=== PATIENT | male | born 1965 | race Caucasian/White ===

== ENCOUNTER 2017-09-11 18:16 | Inpatient (IN) | payer SELFPAY ==
[2017-09-11 20:02] VITALS: BMI 28.2
--- NOTE | 2017-09-11 21:03 | HP ---
COWS - Scale Resting Pulse: 1= OK 81-100 Sweatin=Flushed/Facial Moisture Restless Observation: 5= Unable to Sit Still Pupil Size: 0= Normal to Room Light Bone or Joint Aches: 4=Acute Joint/Muscle Pain Runny Nose/ Eye Tearin= Nasal Congestion GI Upset > 30mins: 2= Nausea/Diarrhea Tremor Observation: 2= Slight Tremor Visible Yawning Observation: 0= None Anxiety or Irritability: 4=Extreme Anxiety Goose Flesh Skin: 0=Smooth Skin COWS Score: 21 Admission ROS S - HPI Chief Complaint: WANTS TO DETOX OFF HEROIN Allergies/Adverse Reactions: Allergies Allergy/AdvReac Type Severity Reaction Status Date / Time No Known Allergies Allergy Verified 09/11/17 20:57 History of Present Illness: 51 Y.O. MALE WITH EXTENSIVE HX/O OPIOID DEPENDENCE ADMITTED TO DETOX TXMENT. SELF REFERRED. REPORTS LONGEST CLEAN TIME 3 YEARS. RELAPSED THIS PAST YEAR. DETOX: 6 X REHAB: 2 X Exam Limitations: No Limitations - Ebola screening Have you traveled outside of the country in the last 21 days: No Have you had contact with anyone from an Ebola affected area: No Have you been sick,other than usual withdrawal symptoms: No Do you have a fever: No - Review of Systems Constitutional: Chills, Loss of Appetite, Malaise, Night Sweats, Changes in sleep EENT: reports: Nose Congestion, Dental Problems (TOP DENTURES) Respiratory: reports: No Symptoms reported Cardiac: reports: No Symptoms Reported GI: reports: Diarrhea, Poor Appetite, Poor Fluid Intake, Abdominal cramping : reports: No Symptoms Reported Musculoskeletal: reports: Back Pain, Joint Pain Integumentary: reports: No Symptoms Reported Neuro: reports: No Symptoms reported Endocrine: reports: No Symptoms Reported Hematology: reports: No Symptoms Reported Psychiatric: reports: Anxious, Depressed Other Systems: Reviewed and Negative Patient History - Patient Medical History Hx Anemia: No Hx Asthma: Yes Hx Chronic Obstructive Pulmonary Disease (COPD): No Hx Cancer: No Hx Cardiac Disorders: No Hx Congestive Heart Failure: No Hx Hypertension: No Hx Hypercholesterolemia: No Hx Pacemaker: No HX Cerebrovascular Accident: No Hx Seizures: No Hx Dementia: No Hx Diabetes: No Hx Gastrointestinal Disorders: No Hx Liver Disease: No Hx Genitourinary Disorders: No Hx Sexually Transmitted Disorders: No Hx Renal Disease (ESRD): No Hx Thyroid Disease: No Hx Human Immunodeficiency Virus (HIV): No Hx Hepatitis C: Yes (NO TXMENT) Hx Depression: Yes Hx Suicide Attempt: No Hx Bipolar Disorder: Yes Hx Schizophrenia: No Other Medical History: R HIP PAIN - Patient Surgical History Past Surgical History: No - PPD History Previous Implant?: Yes Documented Results: Negative w/o proof Implanted On Prior [facility] Admission?: Yes PPD to be Administered?: Yes - Smoking Cessation Smoking history: Current every day smoker Have you smoked in the past 12 months: Yes Aproximately how many cigarettes per day: 20 Cigars Per Day: 0 Hx Chewing Tobacco Use: No Initiated information on smoking cessation: Yes 'Breaking Loose' booklet given: 09/11/17 - Substance & Tx. History Hx Alcohol Use: No Hx Substance Use: Yes Substance Use Type: Heroin Hx Substance Use Treatment: Yes ([facility]) - Substances Abused HEROIN Route: Injection Frequency: Daily Amount used: 10 Age of first use: 33 Date of Last Use: 09/11/17 Family Disease History - Family Disease History Family Disease History: Other: Brother (DRUGS) Admission Physical Exam [facility] - Vital Signs Vital Signs: Vital Signs - 24 hr 09/11/17 19:59 Temperature 98.6 F Pulse Rate 90 Respiratory 18 Rate Blood Pressure 144/77 - Physical General Appearance: Yes: Appropriately Dressed, Mild Distress, Irritable, Anxious HEENTM: Yes: EOMI, Normocephalic, Normal Voice, ALVIN, Pharynx Normal, Nasal Congestion, Other (TOP DENTURES) Respiratory: Yes: Chest Non-Tender, Lungs Clear, Normal Breath Sounds, No Respiratory Distress, No Accessory Muscle Use Neck: Yes: No masses,lesions,Nodules, Supple, Trachea in good position Breast: Yes: Breast Exam Deferred Cardiology: Yes: Regular Rhythm, Regular Rate, S1, S2 Abdominal: Yes: Normal Bowel Sounds, Non Tender, Soft Genitourinary: Yes: Within Normal Limits Back: Yes: Normal Inspection Musculoskeletal: Yes: full range of Motion, Gait Steady, Other (AMBULATES W/ LIMP) Extremities: Yes: Normal Capillary Refill, Normal Range of Motion, Non-Tender, Tremors Neurological: Yes: 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, Fully Oriented, Alert, Motor Strength 5/5 Integumentary: Yes: Normal Color, Dry, Warm, Track Heart (UE AND BLE) Lymphatic: Yes: Within Normal Limits - Diagnostic (1) Asthma Current Visit: Yes Status: Chronic Qualifiers: Asthma severity: mild Asthma persistence: intermittent Asthma complication type: uncomplicated Qualified Code(s): J45.20 - Mild intermittent asthma, uncomplicated; J45.20 - Mild intermittent asthma, uncomplicated; J45.20 - Mild intermittent asthma, uncomplicated (2) Nicotine dependence Current Visit: Yes Status: Chronic Qualifiers: Nicotine product type: cigarettes Substance use status: uncomplicated Qualified Code(s): F17.210 - Nicotine dependence, cigarettes, uncomplicated; F17.210 - Nicotine dependence, cigarettes, uncomplicated (3) Opioid dependence with withdrawal Current Visit: Yes Status: Chronic Cleared for Admission S - Detox or Rehab [facility] Level of Care: Medically Managed Detox Regimen/Protocol: Methadone S Breath Alcohol Content Breath Alcohol Content: 0 Urine Drug Screen - Results Drug Screen Negative: No Urine Drug Screen Results: OPI-Opiates
[2017-09-11] MEDS ORDERED: LOPERAMIDE HCL 2 MG CAPSULE PO PRN (22:39)
[2017-09-11] MEDS ORDERED: MENTHOL/PHENOL 1 EACH UD MM PRN (22:39)
[2017-09-11] MEDS ORDERED: METHADONE HCL 10 MG TABLET (FOR DETOX USE ONLY) PO ONE ×2 (22:39→23:00)
[2017-09-11] MEDS ORDERED: MAGNESIUM CITRATE 300 ML BOTTLE PO PRN (22:39)
[2017-09-11] MEDS ORDERED: P-EPHED 60MG/TRIPROLIDI 2.5MG TABLET PO PRN (22:39)
[2017-09-11] MEDS ORDERED: MAG HYDROX/AL HYDROX/SIMETH 30 ML UNIT-DOSE CUP PO PRN (22:39)
[2017-09-11] MEDS ORDERED: guaiFENesin/D-METHORPHAN HB 10 ML UNIT-DOSE CUPS PO PRN (22:39)
[2017-09-11] MEDS ORDERED: NICOTINE POLACRILEX 2 MG GUM BC PRN (22:39)
[2017-09-11] MEDS ORDERED: MAGNESIUM HYDROX 2400MG/30ML ORAL SUSPENSION 30 ML CUP PO PRN (22:39)
[2017-09-11] MEDS ORDERED: ACETAMINOPHEN 325 MG TABLET (FP) PO PRN (22:39)
[2017-09-11] MEDS: diazePAM 5 MG TABLET PO PRN (23:06)
[2017-09-11] MEDS: diphenhydrAMINE HCL 50 MG CAPSULE PO PRN (23:07)
[2017-09-12] MEDS: IBUPROFEN 400 MG TABLET (FP) PO PRN (01:10)
[2017-09-12] MEDS: diphenhydrAMINE HCL 50 MG CAPSULE PO PRN (01:10)
[2017-09-12 01:56] LABS: URINE APPEARANCE SLCLOUDY; URINE BILIRUBIN NEGATIVE (NEGATIVE); URINE BLOOD NEGATIVE (NEGATIVE); URINE COLOR YELLOW; URINE GLUCOSE (UA) NEGATIVE (NEGATIVE); URINE KETONE NEGATIVE (NEGATIVE); URINE NITRITE NEGATIVE (NEGATIVE); URINE PROTEIN NEGATIVE (NEGATIVE); URINE UROBILINOGEN NEGATIVE mg/dL (0.2-1.0)
[2017-09-12] MEDS: diazePAM 5 MG TABLET PO PRN ×4 (05:36→22:26)
[2017-09-12] MEDS ORDERED: ALBUTEROL SO4 18 GM HFA INHALER IH PRN (06:07)
[2017-09-12] MEDS ORDERED: ALBUTEROL SO4 2.5/IPRATROPIUM 0.5 INH SOL 3 ML VIAL.NEB. NEB PRN (06:07)
[2017-09-12 09:46] LABS: MCHC 33.4 g/dl (32.0-35.9); MEAN CELL VOLUME 83.9 fl (80-96); MEAN PLT VOLUME 8.3 fl (7.5-11.1); PLATELET COUNT 257 K/MM3 (134-434); RDW 14.1 % (11.9-15.9); WHITE BLOOD COUNT 7.8 K/mm3 (4.0-10.0)
[2017-09-12] MEDS ORDERED: METHADONE HCL 10 MG TABLET (FOR DETOX USE ONLY) PO ONE (10:00)
[2017-09-12 10:08] LABS: ALBUMIN 3.1 g/dl (3.4-5.0); ALK PHOS 53 U/L (45-117); ANION GAP 8 (8-16); BILIRUBIN,TOTAL 0.5 mg/dL (0.2-1.0); CALCIUM 8.4 mg/dL (8.5-10.1); CO2 27 mmol/L (21-32); CREATININE 0.9 mg/dL (0.7-1.3); GLUCOSE,RANDOM 124 mg/dL (74-106); SGOT/AST 14 U/L (15-37); SGPT/ALT 32 U/L (12-78); TOT PROT 6.3 g/dl (6.4-8.2)
[2017-09-12 10:19] LABS: URINE LEUK ESTERASE Negative (NEGATIVE)
[2017-09-12] MEDS: NICOTINE 21 MG/24 HOURS TOPICAL PATCH TD SCH (10:34)
[2017-09-12] MEDS: PRENATAL VITAMINS W/ FOLIC ACID TABLET (FP) PO SCH (10:34)
--- NOTE | 2017-09-12 12:08 | PN ---
BHS COWS - Scale Resting Pulse: 1= [place] 81-100 Sweatin= Chills/Flushing Restless Observation: 3= Extraneous Movement Pupil Size: 0= Normal to Room Light Bone or Joint Aches: 4=Acute Joint/Muscle Pain Runny Nose/ Eye Tearin= Nasal Congestion GI Upset > 30mins: 1= Stomach Cramp Tremor Observation of Outstretched Hands: 1= Tremor Hope, Not Seen Yawning Observation: 2= >3x During Session Anxiety or Irritability: 2=Irritable/Anxious Goose Flesh Skin: 0=Smooth Skin COWS Score: 16 BHS Progress Note (SOAP) Subjective: ANXIETY,SWEATS/CHILLS, FATIGUE, Objective: 09/12/17 12:08 Vital Signs Temperature 97.1 F L 09/12/17 10:16 Pulse Rate 70 09/12/17 10:16 Respiratory Rate 18 09/12/17 10:16 Blood Pressure 119/76 09/12/17 10:16 O2 Sat by Pulse Oximetry (%) Laboratory Last Values WBC 7.8 K/mm3 (4.0-10.0) 09/12/17 07:00 RBC 4.89 M/mm3 (4.00-5.60) 09/12/17 07:00 Hgb 13.7 GM/dL (11.7-16.9) 09/12/17 07:00 Hct 41.0 % (35.4-49) 09/12/17 07:00 MCV 83.9 fl (80-96) 09/12/17 07:00 MCH 28.0 pg (25.7-33.7) 09/12/17 07:00 MCHC 33.4 g/dl (32.0-35.9) 09/12/17 07:00 RDW 14.1 % (11.9-15.9) 09/12/17 07:00 Plt Count 257 K/MM3 (134-434) 09/12/17 07:00 MPV 8.3 fl (7.5-11.1) 09/12/17 07:00 Sodium 140 mmol/L (136-145) 09/12/17 07:00 Potassium 3.5 mmol/L (3.5-5.1) 09/12/17 07:00 Chloride 105 mmol/L (98-107) 09/12/17 07:00 Carbon Dioxide 27 mmol/L (21-32) 09/12/17 07:00 Anion Gap 8 (8-16) 09/12/17 07:00 BUN 15 mg/dL (7-18) 09/12/17 07:00 Creatinine 0.9 mg/dL (0.7-1.3) 09/12/17 07:00 Creat Clearance w eGFR > 60 (>60) 09/12/17 07:00 Random Glucose 124 mg/dL (74-106) H 09/12/17 07:00 Calcium 8.4 mg/dL (8.5-10.1) L 09/12/17 07:00 Total Bilirubin 0.5 mg/dL (0.2-1.0) 09/12/17 07:00 AST 14 U/L (15-37) L 09/12/17 07:00 ALT 32 U/L (12-78) 09/12/17 07:00 Alkaline Phosphatase 53 U/L (45-117) 09/12/17 07:00 Total Protein 6.3 g/dl (6.4-8.2) L 09/12/17 07:00 Albumin 3.1 g/dl (3.4-5.0) L 09/12/17 07:00 Urine Color Yellow 09/11/17 22:53 Urine Appearance Slcloudy 09/11/17 22:53 Urine pH 5.0 (5.0-8.0) 09/11/17 22:53 Ur Specific [place] >= 1.030 (1.005-1.025) H 09/11/17 22:53 Urine Protein Negative (NEGATIVE) 09/11/17 22:53 Urine Glucose (UA) Negative (NEGATIVE) 09/11/17 22:53 Urine Ketones Negative (NEGATIVE) 09/11/17 22:53 Urine Blood Negative (NEGATIVE) 09/11/17 22:53 Urine Nitrite Negative (NEGATIVE) 09/11/17 22:53 Urine Bilirubin Negative (NEGATIVE) 09/11/17 22:53 Urine Urobilinogen Negative mg/dL (0.2-1.0) 09/11/17 22:53 Ur Leukocyte Esterase Negative (NEGATIVE) 09/11/17 22:53 RPR Titer Nonreactive (NONREACTIVE) 09/12/17 07:00 Assessment: 09/12/17 12:08 WITHDRAWAL SX Plan: CONTINUE DETOX
--- NOTE | 2017-09-12 13:47 | CONSULT ---
[facility] Psychiatric Consult - Data Date of interview: 09/12/17 Admission source: [facility] Identifying data: First admission to [facility] for this 51 y/o male seeking detox treatment on for heroin dependence.Patient is single ( common-law),a father of two,domiciled,unemployed and supported on Public Assistance. Substance Abuse History: Confirmed by patient in this interview. Smoking Cessation. Smoking history: Current every day smoker. Have you smoked in the past 12 months: Yes. Aproximately how many cigarettes per day: 20. Cigars Per Day: 0. Hx Chewing Tobacco Use: No. Initiated information on smoking cessation : Yes. 'Breaking Loose' booklet given: 09/11/17. - Substance & Tx. History. Hx Alcohol Use: No. Hx Substance Use: Yes. Substance Use Type: Heroin. Hx Substance Use Treatment: Yes ([facility]). - Substances Abused. HEROIN. Route: Injection. Frequency: Daily. Amount used: 10. Age of first use: 33. Date of Last Use: 09/11/17 Medical History: Hepatitis C,chronic hip pain and bronchial asthma. Psychiatric History: No reported history of psychiatric hospitalizations.Patient reports past treatment with prozac,latuda and buspar.No recall of date of last intake.Mr Orozco denies current OPD care and expresses no interest in resuming psychotropic medications other than trazdone for insomnia.Known to [facility]drug program in [facility].patient denies history of suicide attempts. Physical/Sexual Abuse/Trauma History: No history of abuse. Additional Comment: Urine Drug Screen Results: OPI-Opiates.Noted. Mental Status Exam - Mental Status Exam Alert and Oriented to: Time, Place, Person Cognitive Function: Good Patient Appearance: Well Groomed Mood: Hopeful, Euthymic Affect: Appropriate, Normal Range Patient Behavior: Appropriate, Cooperative (friendly) Speech Pattern: Clear, Appropriate Voice Loudness: Normal Thought Process: Intact, Goal Oriented Thought Disorder: Not Present Hallucinations: Denies Suicidal Ideation: Denies Insight/Judgement: Poor Sleep: Poorly, Difficulty falling asleep Appetite: Good Muscle strength/Tone: Normal Gait/Station: Normal Psychiatric Findings - Problem List ([place] 1, 2,3) (1) Opioid dependence with withdrawal Current Visit: Yes Status: Acute (2) Nicotine dependence Current Visit: Yes Status: Acute Qualifiers: Nicotine product type: cigarettes Substance use status: in withdrawal Qualified Code(s): F17.213 - Nicotine dependence, cigarettes, with withdrawal; F17.213 - Nicotine dependence, cigarettes, with withdrawal (3) Asthma Current Visit: Yes Status: Chronic Qualifiers: Asthma severity: mild Asthma persistence: intermittent Asthma complication type: uncomplicated Qualified Code(s): J45.20 - Mild intermittent asthma, uncomplicated; J45.20 - Mild intermittent asthma, uncomplicated; J45.20 - Mild intermittent asthma, uncomplicated (4) Insomnia Current Visit: Yes Status: Acute - Initial Treatment Plan Initial Treatment Plan: Psychoeducation.Detoxification.Trazodone 100 mg po hs ( patient's request).Patient is informed of risk for priapism.He agrees to follow this careplan.Observation.
[2017-09-12] MEDS: THIAMINE HCL 100 MG TABLET (FP) PO SCH (22:24)
[2017-09-12] MEDS: traZODone HCL 100 MG TABLET (FP) PO SCH (22:25)
[2017-09-13] MEDS: diazePAM 5 MG TABLET PO PRN ×3 (05:40→22:30)
[2017-09-13] MEDS: IBUPROFEN 400 MG TABLET (FP) PO PRN (05:40)
[2017-09-13] MEDS ORDERED: METHADONE HCL 5 MG TABLET (FOR DETOX USE ONLY) PO ONE (10:00)
[2017-09-13] MEDS: NICOTINE 21 MG/24 HOURS TOPICAL PATCH TD SCH (10:56)
[2017-09-13] MEDS: PRENATAL VITAMINS W/ FOLIC ACID TABLET (FP) PO SCH (10:56)
--- NOTE | 2017-09-13 12:55 | EKG ---
Test Reason : Blood Pressure : / mmHG Vent. Rate : 071 BPM Atrial Rate : 071 BPM P-R Int : 148 ms QRS Dur : 086 ms QT Int : 388 ms P-R-T Axes : 058 043 036 degrees QTc Int : 421 ms NORMAL SINUS RHYTHM NORMAL ECG NO PREVIOUS ECGS AVAILABLE Confirmed by JOAN MACEIL MD ([id number]) on 09/13/2017 12:55:21 PM Referred By: Confirmed By:JOAN MACIEL MD
--- NOTE | 2017-09-13 16:48 | PN ---
BHS COWS - Scale Resting Pulse: 1= [place] 81-100 Sweatin= Chills/Flushing Restless Observation: 0= Sits Still Pupil Size: 0= Normal to Room Light Bone or Joint Aches: 4=Acute Joint/Muscle Pain Runny Nose/ Eye Tearin= Nasal Congestion GI Upset > 30mins: 2= Nausea/Diarrhea Tremor Observation of Outstretched Hands: 2= Slight Tremor Visible Yawning Observation: 1= 1-2x During Session Anxiety or Irritability: 2=Irritable/Anxious Goose Flesh Skin: 0=Smooth Skin COWS Score: 14 BHS Progress Note (SOAP) Subjective: Sweating, Diarrhea, Fatigue, Stomach Cramping, Body Aches. Objective: PT. A & O X 2 (DISORIENTED ABOUT DAY /DATE). PT. OBSERVED AMBULATING ON UNIT. NO ACUTE DISTRESS. 09/13/17 16:46 Vital Signs Temperature 96.6 F L 09/13/17 13:59 Pulse Rate 95 H 09/13/17 13:59 Respiratory Rate 18 09/13/17 13:59 Blood Pressure 104/74 09/13/17 13:59 O2 Sat by Pulse Oximetry (%) Laboratory Tests 09/11/17 09/11/17 09/12/17 07:00 22:53 07:00 WBC 7.8 RBC 4.89 Hgb 13.7 Hct 41.0 MCV 83.9 MCH 28.0 MCHC 33.4 RDW 14.1 Plt Count 257 MPV 8.3 Sodium Potassium Chloride Carbon Dioxide Anion Gap BUN Creatinine Creat Clearance w eGFR Random Glucose Calcium Total Bilirubin AST ALT Alkaline Phosphatase Total Protein Albumin Urine Color Yellow Urine Appearance Slcloudy Urine pH 5.0 Ur Specific [place] >= 1.030 H Urine Protein Negative Urine Glucose (UA) Negative Urine Ketones Negative Urine Blood Negative Urine Nitrite Negative Urine Bilirubin Negative Urine Urobilinogen Negative Ur Leukocyte Esterase Negative RPR Titer Hepatitis C Antibody >11.0 H 09/12/17 09/12/17 07:00 07:00 WBC RBC Hgb Hct MCV MCH MCHC RDW Plt Count MPV Sodium 140 Potassium 3.5 Chloride 105 Carbon Dioxide 27 Anion Gap 8 BUN 15 Creatinine 0.9 Creat Clearance w eGFR > 60 Random Glucose 124 H Calcium 8.4 L Total Bilirubin 0.5 AST 14 L ALT 32 Alkaline Phosphatase 53 Total Protein 6.3 L Albumin 3.1 L Urine Color Urine Appearance Urine pH Ur Specific [place] Urine Protein Urine Glucose (UA) Urine Ketones Urine Blood Urine Nitrite Urine Bilirubin Urine Urobilinogen Ur Leukocyte Esterase RPR Titer Nonreactive Hepatitis C Antibody LABS NOTED. PT. REPORTS HISTORY OF HEP C. 09/13/17 16:49 Assessment: 09/13/17 16:47 WITHDRAWAL SYMPTOMS. Plan: CONTINUE DETOX. PRN IMMODIUM FOR DIARRHEA. INCREASE DAILY PO FLUID INTAKE.
[2017-09-13] MEDS: LIDOCAINE 5% TOPICAL PATCH TP SCH (17:44)
[2017-09-13] MEDS ORDERED: LIDOCAINE PATCH REMOVAL MC SCH (22:00)
[2017-09-13] MEDS: diphenhydrAMINE HCL 50 MG CAPSULE PO PRN (22:29)
[2017-09-13] MEDS: THIAMINE HCL 100 MG TABLET (FP) PO SCH (22:29)
[2017-09-13] MEDS: traZODone HCL 100 MG TABLET (FP) PO SCH (22:29)
[2017-09-13] MEDS: IBUPROFEN 600 MG TABLET (FP) PO PRN (22:32)
[2017-09-14] MEDS: diazePAM 5 MG TABLET PO PRN ×3 (05:18→14:33)
[2017-09-14] MEDS: IBUPROFEN 600 MG TABLET (FP) PO PRN (05:18)
[2017-09-14] MEDS ORDERED: METHADONE HCL 5 MG TABLET (FOR DETOX USE ONLY) PO ONE (10:00)
[2017-09-14] MEDS: LIDOCAINE 5% TOPICAL PATCH TP SCH (10:19)
[2017-09-14] MEDS: NICOTINE 21 MG/24 HOURS TOPICAL PATCH TD SCH (10:20)
[2017-09-14] MEDS: PRENATAL VITAMINS W/ FOLIC ACID TABLET (FP) PO SCH (10:20)
[2017-09-14 13:43] VITALS: BP 141/84; PULSE 83; TEMP 96.5
--- NOTE | 2017-09-14 13:55 | PN ---
BHS Progress Note (SOAP) Subjective: HOT/COLD FLASHES,ANXIETY,FATIGUE. Objective: 09/14/17 13:54 Vital Signs Temperature 96.5 F L 09/14/17 13:42 Pulse Rate 83 09/14/17 13:42 Respiratory Rate 20 09/14/17 13:42 Blood Pressure 141/84 09/14/17 13:42 O2 Sat by Pulse Oximetry (%) Laboratory Last Values WBC 7.8 K/mm3 (4.0-10.0) 09/12/17 07:00 RBC 4.89 M/mm3 (4.00-5.60) 09/12/17 07:00 Hgb 13.7 GM/dL (11.7-16.9) 09/12/17 07:00 Hct 41.0 % (35.4-49) 09/12/17 07:00 MCV 83.9 fl (80-96) 09/12/17 07:00 MCH 28.0 pg (25.7-33.7) 09/12/17 07:00 MCHC 33.4 g/dl (32.0-35.9) 09/12/17 07:00 RDW 14.1 % (11.9-15.9) 09/12/17 07:00 Plt Count 257 K/MM3 (134-434) 09/12/17 07:00 MPV 8.3 fl (7.5-11.1) 09/12/17 07:00 Sodium 140 mmol/L (136-145) 09/12/17 07:00 Potassium 3.5 mmol/L (3.5-5.1) 09/12/17 07:00 Chloride 105 mmol/L (98-107) 09/12/17 07:00 Carbon Dioxide 27 mmol/L (21-32) 09/12/17 07:00 Anion Gap 8 (8-16) 09/12/17 07:00 BUN 15 mg/dL (7-18) 09/12/17 07:00 Creatinine 0.9 mg/dL (0.7-1.3) 09/12/17 07:00 Creat Clearance w eGFR > 60 (>60) 09/12/17 07:00 Random Glucose 124 mg/dL (74-106) H 09/12/17 07:00 Calcium 8.4 mg/dL (8.5-10.1) L 09/12/17 07:00 Total Bilirubin 0.5 mg/dL (0.2-1.0) 09/12/17 07:00 AST 14 U/L (15-37) L 09/12/17 07:00 ALT 32 U/L (12-78) 09/12/17 07:00 Alkaline Phosphatase 53 U/L (45-117) 09/12/17 07:00 Total Protein 6.3 g/dl (6.4-8.2) L 09/12/17 07:00 Albumin 3.1 g/dl (3.4-5.0) L 09/12/17 07:00 Urine Color Yellow 09/11/17 22:53 Urine Appearance Slcloudy 09/11/17 22:53 Urine pH 5.0 (5.0-8.0) 09/11/17 22:53 Ur Specific [place] >= 1.030 (1.005-1.025) H 09/11/17 22:53 Urine Protein Negative (NEGATIVE) 09/11/17 22:53 Urine Glucose (UA) Negative (NEGATIVE) 09/11/17 22:53 Urine Ketones Negative (NEGATIVE) 09/11/17 22:53 Urine Blood Negative (NEGATIVE) 09/11/17 22:53 Urine Nitrite Negative (NEGATIVE) 09/11/17 22:53 Urine Bilirubin Negative (NEGATIVE) 09/11/17 22:53 Urine Urobilinogen Negative mg/dL (0.2-1.0) 09/11/17 22:53 Ur Leukocyte Esterase Negative (NEGATIVE) 09/11/17 22:53 RPR Titer Nonreactive (NONREACTIVE) 09/12/17 07:00 Hepatitis C Antibody >11.0 s/co ratio (0.0-0.9) H 09/11/17 07:00 PREVIOUS HX HEP C REPORTED. Assessment: 09/14/17 13:54 WITHDRAWAL SX Plan: CONTINUE DETOX
--- NOTE | 2017-09-14 18:12 | PN ---
S Progress Note Note: called by nurse stated patient did not want to complete treatment,did not want to wait,signed release ama
--- NOTE | 2017-09-14 18:13 | DS ---
[facility] Detox Discharge Summary Admission Date: 09/11/17 Discharge Date: 09/15/17 - History Present History: Opioid Dependence Additional Comments: patient did not want to complete treatment,signed release ama,did not want to wait Pertinent Past History: asthma nicotine dependence depression - Physical Exam Results Vital Signs: Vital Signs Temperature 96.5 F L 09/14/17 13:42 Pulse Rate 83 09/14/17 13:42 Respiratory Rate 20 09/14/17 13:42 Blood Pressure 141/84 09/14/17 13:42 O2 Sat by Pulse Oximetry (%) Pertinent Admission Physical Exam Findings: withdrawal finding - Medication Discharge Medications: Ambulatory Orders Trazodone HCl 100 mg PO HS #30 tablet 09/12/17 - Diagnosis (1) Opioid dependence with withdrawal Status: Acute (2) Insomnia Status: Acute (3) Nicotine dependence Status: Acute Qualifiers: Nicotine product type: cigarettes Substance use status: in withdrawal Qualified Code(s): F17.213 - Nicotine dependence, cigarettes, with withdrawal; F17.213 - Nicotine dependence, cigarettes, with withdrawal (4) Asthma Status: Chronic Qualifiers: Asthma severity: mild Asthma persistence: intermittent Asthma complication type: uncomplicated Qualified Code(s): J45.20 - Mild intermittent asthma, uncomplicated; J45.20 - Mild intermittent asthma, uncomplicated; J45.20 - Mild intermittent asthma, uncomplicated (5) Hx of hepatitis C Status: Chronic - AMA Did Patient Leave Against Medical Advice: Yes
[2017-09-15] MEDS ORDERED: METHADONE HCL 10 MG TABLET (FOR DETOX USE ONLY) PO ONE (10:00)
[2017-09-16] MEDS ORDERED: METHADONE HCL 5 MG TABLET (FOR DETOX USE ONLY) PO ONE (06:00)
== END 2017-09-14 17:25 | disposition left against medical advice (07) | DRG 770 ==
LOC: YASAS 18:16 → Y3N 21:10
PROVIDERS: ADMIT Internal Medicine; ATTEND Internal Medicine
PROC: HZ2ZZZZ Detoxification Services for Substance Abuse Treatment (ICD-10-PCS; principal; 2017-09-11)
DX: F11.23 Opioid dependence with withdrawal (principal); F17.213 Nicotine dependence, cigarettes, with withdrawal; G47.00 Insomnia, unspecified; J45.20 Mild intermittent asthma, uncomplicated; B18.2 Chronic viral hepatitis C; Z59.0 Homelessness
CPT/HCPCS: 36415; 80053; 81003; 85027; 86593; 86803; 87522; 93005; 93010